=== PATIENT | female | born 1945 | race Caucasian/White ===

== ENCOUNTER 2018-05-12 09:17 | Outpatient (CLI) | payer MEDICARE, MEDICAID ==
--- NOTE | 2018-05-12 10:49 | RAD ---
THREE VIEWS LEFT FOOT: Comparison: None. History: Left foot pain. FINDINGS: Three views of the left foot shows no evidence of acute fracture or dislocation. No degenerative mcelroy ges are seen. No significant soft tissue swelling is present. IMPRESSION: No evidence of acute osseous abnormality. POS: C
== END 2018-05-12 09:18 | disposition home or self-care (01) ==
LOC: RAD-FRANK 09:17
PROVIDERS: ATTEND Internal Medicine
DX: S99.921A Unspecified injury of right foot, initial encounter (principal)

== ENCOUNTER 2018-07-10 21:21 | Emergency (ER) | payer MEDICARE, MEDICAID ==
--- NOTE | 2018-07-10 22:06 | RAD ---
XR Chest Pa Lat STANDARD HISTORY: Cough COMPARISON: None FINDINGS: The heart size is normal. The lungs are well expanded without focal areas of consolidation, pneumothorax or pleural effusions. There are degenerative changes in the spine IMPRESSION: No radiographic evidence of acute cardiopulmonary process.
[2018-07-10] MEDS ORDERED: predniSONE 20 MG TAB ONE (22:39)
== END 2018-07-10 23:00 | disposition home or self-care (01) ==
LOC: ERS 21:21
DX: J20.9 Acute bronchitis, unspecified (principal); I10 Essential (primary) hypertension; J45.909 Unspecified asthma, uncomplicated; F17.220 Nicotine dependence, chewing tobacco, uncomplicated; E78.5 Hyperlipidemia, unspecified; I49.9 Cardiac arrhythmia, unspecified; Z79.51 Long term (current) use of inhaled steroids; Z79.899 Other long term (current) drug therapy; Z79.82 Long term (current) use of aspirin
CPT/HCPCS: 71046; 94640; J7512; J7620

== ENCOUNTER 2018-11-09 09:38 | Outpatient (CLI) | payer MEDICARE, MEDICAID ==
--- NOTE | 2018-11-09 11:46 | RAD ---
RIGHT SHOULDER 3 VIEWS: Date: 11/09/18 INDICATION: Pain. 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 Imaged right lung is clear. IMPRESSION: 1. No acute osseous abnormality of the right shoulder. 2. Osteoarthritis. POS: CET
== END 2018-11-09 09:39 | disposition home or self-care (01) ==
LOC: RAD-FRANK 09:38
PROVIDERS: ATTEND Internal Medicine
DX: M25.511 Pain in right shoulder (principal); M19.011 Primary osteoarthritis, right shoulder